=== PATIENT | female | born 1960 | race Caucasian/White ===

== ENCOUNTER 2017-03-24 12:30 | Inpatient (IN) ==
[2017-03-24] MEDS ORDERED: MORPHINE IV ONE (14:02)
[2017-03-24] MEDS ORDERED: ZOFRAN IV ONE (14:02)
[2017-03-24 14:20] LABS: MANUAL DIFF NEEDED? NO
[2017-03-24 14:31] LABS: BASO% 0.3 % (0.0-0.8); EOS# 0.07 X1000 (0.0-0.7); EOS% 2.4 % (0.0-10.0); HEMATOCRIT 33.3 % (37.0-47.0); HEMOGLOBIN 11.1 g/dL (12.0-16.0); LYMPH# 1.09 X1000 (1.2-3.4); LYMPH% 37.8 % (20.5-51.1); MCH 33.7 PG (27-31); MCHC 33.3 g/dL (33-37); MCV 101.2 FL (81-99); MONO# 0.52 X1000 (0.11-0.59); MONO% 18.1 % (1.7-9.3); NEUT% 41.4 % (42.2-75.2); RBC 3.29 XMIL (4.2-5.4)
[2017-03-24 14:33] LABS: PLT 39 X1000 (130-400)
[2017-03-24 14:43] LABS: INR 1.31; PTT 36.6 Seconds (22.0-36.0)
[2017-03-24 14:46] LABS: AGAP 9; ALBUMIN 2.4 g/dL (3.5-5.0); ALKALINE PHOSPHATASE 248 U/L (32-104); BUN 6 mg/dL (8-22); CALCIUM 8.2 mg/dL (8.8-10.2); CHLORIDE 103 mmol/L (98-107); COSMO 281; GOT 249 U/L (10-30); GPT 85 U/L (10-36); MAGNESIUM 1.7 mg/dL (1.5-2.7); POTASSIUM 3.8 mmol/L (3.5-5.1); PREALBUMIN 3.5 mg/dL (20-40); SODIUM 140 mmol/L (136-145); TCO2 28 mmol/L (25-35); TOTAL BILIRUBIN 1.82 mg/dL (0.20-1.00); TOTAL PROTEIN 6.4 g/dL (6.3-8.3)
[2017-03-24] MEDS ORDERED: LACTULOSE PO ONE (15:16)
[2017-03-24 17:45] LABS: AMYLASE 34 U/L (20-200); LIPASE 32 U/L (13-60)
[2017-03-24 20:05] LABS: RETIC% 1.34 % (0.8-2.1); RETIC-HE 38.5 PG (28.2-36.6)
[2017-03-24 20:18] LABS: ACETAMINOPHEN < 1.2 ug/mL (10-30); CK PROFILE 121 U/L (24-173); IRON SATURATION 24 %; TIBC 213 ug/dL; TOTAL IRON 52 ug/dL (49-151); UNBOUND IRON 161 ug/dL (112-346)
[2017-03-24] MEDS: LACTULOSE PO SCH (22:08)
[2017-03-24] MEDS: ALBUMIN 25% IV SCH (22:08)
[2017-03-24] MEDS: XIFAXAN PO SCH (22:54)
[2017-03-24] MEDS: LASIX IV SCH (22:56)
[2017-03-25 03:40] LABS: URINE MICRO REVIEW NEEDED? NO; URINE SOURCE CLEAN CATCH
[2017-03-25 03:53] LABS: HEMATOCRIT 32.3 % (37.0-47.0); MCH 34.1 PG (27-31); MCHC 34.1 g/dL (33-37); MPV 12.6 FL (7.4-10.4); RBC 3.23 XMIL (4.2-5.4)
[2017-03-25 03:58] LABS: BILIRUBIN URINE NEGATIVE (NEGATIVE); BLOOD URINE NEGATIVE (NEGATIVE); COLOR STRAW; GLUCOSE URINE NEGATIVE (NEGATIVE); LEUKOCYTES URINE NEGATIVE (NEGATIVE); NITRITE URINE NEGATIVE (NEGATIVE); PROTEIN URINE NEGATIVE (NEGATIVE); SP GRAVITY URINE 1.003; TURBIDITY URINE CLEAR (CLEAR); UROBILINOGEN URINE NORMAL (NORMAL)
[2017-03-25 04:00] LABS: UR EPITHELIAL CELLS <10 /HPF (<10); URINE BACTERIA NEGATIVE /HPF; URINE RBC <10 /HPF (<10); URINE WBC <10 /HPF (<10)
[2017-03-25 04:05] LABS: AGAP 5; ALBUMIN 2.9 g/dL (3.5-5.0); ALKALINE PHOSPHATASE 220 U/L (32-104); BUN 4 mg/dL (8-22); CALCIUM 9.1 mg/dL (8.8-10.2); CHLORIDE 106 mmol/L (98-107); COSMO 288; GOT 247 U/L (10-30); GPT 83 U/L (10-36); HDL 31 mg/dL (45-65); LDL 72 mg/dL; POTASSIUM 3.2 mmol/L (3.5-5.1); SODIUM 146 mmol/L (136-145); TCO2 35 mmol/L (25-35); TOTAL BILIRUBIN 2.46 mg/dL (0.20-1.00); TOTAL PROTEIN 6.5 g/dL (6.3-8.3); TRIGLYCERIDES 130 mg/dL (35-135); VLDL 26 mg/dL
[2017-03-25 05:02] LABS: FERRITIN 65 ng/mL (13-150)
[2017-03-25] MEDS: ALBUMIN 25% IV SCH ×2 (05:11→10:32)
[2017-03-25] MEDS: LASIX IV SCH ×2 (05:12→16:01)
[2017-03-25] MEDS ORDERED: POTASSIUM CHLORIDE 20% LIQUID PO ONE (07:50)
[2017-03-25] MEDS: XIFAXAN PO SCH ×2 (10:31→21:18)
[2017-03-25] MEDS: LACTULOSE PO SCH ×2 (10:31→21:17)
[2017-03-25 12:43] LABS: HIV ANTIBODY SCREEN SEE COMMENTS
[2017-03-25 14:00] LABS: INR 1.37; PROTIME 14.7 Seconds (9.2-11.7); PTT 38.3 Seconds (22.0-36.0)
[2017-03-25] MEDS ORDERED: ULTRAM PO ONE (15:16)
[2017-03-25] MEDS: LEVAQUIN 500 MG/D5W 500 MG/100 ML IVPB IV SCH (21:17)
[2017-03-26] MEDS: FLAGYL 250 MG/NS 250 MG/50 ML IVPB IV SCH ×6 (00:35→21:46)
[2017-03-26] MEDS: LASIX IV SCH (04:21)
[2017-03-26 05:28] LABS: HEMATOCRIT 35.9 % (37.0-47.0); HEMOGLOBIN 12.2 g/dL (12.0-16.0); MCH 34.2 PG (27-31); MCV 100.6 FL (81-99); RBC 3.57 XMIL (4.2-5.4)
[2017-03-26 05:37] LABS: AGAP 13; ALBUMIN 3.8 g/dL (3.5-5.0); ALKALINE PHOSPHATASE 204 U/L (32-104); BUN 5 mg/dL (8-22); CALCIUM 8.7 mg/dL (8.8-10.2); CHLORIDE 104 mmol/L (98-107); COSMO 283; GOT 209 U/L (10-30); GPT 79 U/L (10-36); SODIUM 143 mmol/L (136-145); TCO2 26 mmol/L (25-35); TOTAL PROTEIN 7.8 g/dL (6.3-8.3)
[2017-03-26] MEDS ORDERED: POTASSIUM CHLORIDE 40 MEQ in NS 250 ML IV ONE (09:00)
[2017-03-26] MEDS: XIFAXAN PO SCH ×2 (09:05→21:46)
[2017-03-26] MEDS: LACTULOSE PO SCH (09:05)
[2017-03-26] MEDS: ULTRAM PO PRN ×2 (10:22→17:18)
[2017-03-26] MEDS: LEVAQUIN 500 MG/D5W 500 MG/100 ML IVPB IV SCH (20:36)
[2017-03-27] MEDS: ULTRAM PO PRN ×3 (01:03→20:05)
[2017-03-27] MEDS: FLAGYL 250 MG/NS 250 MG/50 ML IVPB IV SCH ×4 (03:59→21:25)
[2017-03-27 06:58] LABS: HEMATOCRIT 36.5 % (37.0-47.0); HEMOGLOBIN 12.2 g/dL (12.0-16.0); MCH 33.9 PG (27-31); MCHC 33.4 g/dL (33-37); MCV 101.4 FL (81-99); MPV 12.4 FL (7.4-10.4); RBC 3.6 XMIL (4.2-5.4)
[2017-03-27 07:01] LABS: AGAP 9; ALBUMIN 3.4 g/dL (3.5-5.0); ALKALINE PHOSPHATASE 173 U/L (32-104); BUN 9 mg/dL (8-22); CHLORIDE 108 mmol/L (98-107); COSMO 283; GOT 163 U/L (10-30); GPT 65 U/L (10-36); POTASSIUM 3.1 mmol/L (3.5-5.1); SODIUM 143 mmol/L (136-145); TCO2 26 mmol/L (25-35); TOTAL BILIRUBIN 2.98 mg/dL (0.20-1.00); TOTAL PROTEIN 7.1 g/dL (6.3-8.3)
[2017-03-27] MEDS ORDERED: KLOR-CON PO ONE ×2 (07:46→13:00)
[2017-03-27] MEDS: XIFAXAN PO SCH ×2 (08:44→20:08)
[2017-03-27] MEDS: LACTULOSE PO SCH (08:59)
[2017-03-27 12:41] LABS: HEPATITIS PROFILE ACUTE SEE COMMENTS
[2017-03-27] MEDS: LEVAQUIN 500 MG/D5W 500 MG/100 ML IVPB IV SCH (20:05)
[2017-03-27] MEDS: ZINC SULFATE PO SCH (20:05)
[2017-03-28] MEDS: ULTRAM PO PRN ×2 (03:41→10:05)
[2017-03-28] MEDS: FLAGYL 250 MG/NS 250 MG/50 ML IVPB IV SCH ×2 (03:41→14:11)
[2017-03-28 07:28] LABS: MANUAL DIFF NEEDED? NO
[2017-03-28 07:41] LABS: AGAP 12; BUN 9 mg/dL (8-22); CALCIUM 8.7 mg/dL (8.8-10.2); CHLORIDE 106 mmol/L (98-107); COSMO 283; POTASSIUM 3.2 mmol/L (3.5-5.1); SODIUM 143 mmol/L (136-145); TCO2 25 mmol/L (25-35)
[2017-03-28 07:43] LABS: BASO% 0.4 % (0.0-0.8); EOS% 2.1 % (0.0-10.0); HEMATOCRIT 36.5 % (37.0-47.0); HEMOGLOBIN 12.2 g/dL (12.0-16.0); LYMPH# 1.77 X1000 (1.2-3.4); LYMPH% 36.9 % (20.5-51.1); MCH 33.2 PG (27-31); MCHC 33.4 g/dL (33-37); MCV 99.2 FL (81-99); MONO# 0.66 X1000 (0.11-0.59); MONO% 13.8 % (1.7-9.3); MPV 11.2 FL (7.4-10.4); NEUT% 46.8 % (42.2-75.2); PLT 61 X1000 (130-400); RBC 3.68 XMIL (4.2-5.4)
[2017-03-28 08:23] VITALS: BP 104/53
[2017-03-28] MEDS: ZINC SULFATE PO SCH (10:04)
[2017-03-28] MEDS: LACTULOSE PO SCH (10:05)
[2017-03-28] MEDS: XIFAXAN PO SCH (10:05)
[2017-03-28] MEDS ORDERED: LEVAQUIN PO SCH (10:30)
[2017-03-28] MEDS ORDERED: FLAGYL PO SCH (13:00)
[2017-03-28] MEDS ORDERED: KLOR-CON PO ONE (13:29)
[2017-03-28] MEDS ORDERED: MORPHINE IR PO SCH (17:00)
[2017-03-28] MEDS ORDERED: XIFAXAN PO SCH (21:00)
[2017-03-28] MEDS ORDERED: LACTULOSE PO SCH ×2 (21:00)
[2017-03-28] MEDS ORDERED: PRILOSEC PO SCH (21:00)
[2017-03-29] MEDS ORDERED: VITAMIN B-12 PO SCH (09:00)
[2017-03-29] MEDS ORDERED: SEROQUEL PO SCH (09:00)
[2017-03-29] MEDS ORDERED: MAG-OX PO SCH (09:00)
[2017-03-29] MEDS ORDERED: VITAMIN D PO SCH (09:00)
[2017-03-29] MEDS ORDERED: CYMBALTA PO SCH (09:00)
== END 2017-03-28 14:49 | disposition home health service (06) ==
LOC: ED 12:30 → 3N 19:30 → SUATTDRO 19:30 → 3N 19:35
PROVIDERS: ATTEND Internal Medicine